=== PATIENT | female | born 1950 | race Caucasian/White ===

== ENCOUNTER 2017-05-22 08:00 | Outpatient (CLI) | payer OTHER | END 2017-05-22 08:01 | disposition home or self-care (01) | LOC: BICMAMMO 08:00 | PROVIDERS: ATTEND Internal Medicine | DX: M81.0 Age-related osteoporosis without current pathological fracture (principal) | CPT/HCPCS: 77080 ==

== ENCOUNTER 2019-08-08 10:18 | Outpatient (CLI) | payer MEDICARE, BC ==
[2019-08-08] MEDS ORDERED: Iopamidol-370 76% 500 ML 1 ML ONE (11:06)
--- NOTE | 2019-08-08 11:44 | CT ---
CT ABDOMEN WITH AND WITHOUT IV CONTRAST 08/08/2019 CLINICAL INFORMATION: Pancreatic pseudocyst. Left lower quadrant abdominal pain. Abnormal bowel habits. COMPARISON: None. Technique: Multiple contiguous axial CT images are obtained through the abdomen and pelvis with IV contrast. Cor onal reformatted images are provided. FINDINGS: Lower Chest: Bibasilar atelectasis. Vessels: Vascular calcifications in the abdominal aorta and iliac arteries Abdomen: Portal vein:Patent Gallbladder: Within normal limits for CT imaging. Liver: A subcentimeter too small to characterize hypodense lesion is seen in the right hepatic lobe a s well as lateral segment left hepatic lobe which are too small to characterize. Spleen: within normal limits. Pancreas: A 7 mm hypodense cystic appearing lesion is seen in the region of the pancreatic head. Panc reas otherwise demonstrates a normal appearance. No pancreatic or peripancreatic fluid collection is seen to suggest pseudocyst formation. Adrenals: within normal limits. Kidneys: There is an increased density 2.2 cm cystic lesion superior pole left kidney which does not demonstrate appreciable enhancement. Kidneys otherwise demonstrate a normal CT appearance bilaterally. Bowel: Small to moderate amount retained fecal material seen throughout the visualized colon. Loops o f small bowel are normal in caliber. Peritoneum: No ascites or free air; no fluid collection. Mesentery and Retroperitoneum: No enlarged mesenteric or retroperitoneal lymph nodes. Abdominal Wall: within normal limits. Bones: Degenerative changes are seen in the lumbar spine. There is mild left convex curvature of the lower lumbar spine. There is mild compression fracture involving the inferior endplate of the L3 vertebral body. The exact age is indeterminate, this is probably more remote in origin. IMPRESSION: 1. Subcentimeter too small to characterize hypodense lesion pancreatic head. Follow-up evaluation in one year is recommended. 2. 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 3. Subcentimeter too small to characterize hypodense lesions in each lobe of the liver. 4. Wedge-shaped compression fracture L3 vertebral body. Exact age is indeterminate, but this is proba prema more remote in origin.
== END 2019-08-08 10:19 | disposition home or self-care (01) ==
LOC: BICCT 10:18
PROVIDERS: ATTEND Internal Medicine Gastroenterology
DX: K86.2 Cyst of pancreas (principal); K21.9 Gastro-esophageal reflux disease without esophagitis; R10.32 Left lower quadrant pain; R19.4 Change in bowel habit; N28.1 Cyst of kidney, acquired; M48.56XA Collapsed vertebra, not elsewhere classified, lumbar region, initial encounter for fracture; K86.89 Other specified diseases of pancreas
CPT/HCPCS: 74170; 82565; Q9967

== ENCOUNTER 2021-07-19 09:54 | Outpatient (CLI) | payer MEDICARE, BC | END 2021-07-19 09:55 | disposition home or self-care (01) | LOC: SCSMRI 09:54 | PROVIDERS: ATTEND Family Medicine | DX: M25.511 Pain in right shoulder (principal); M50.10 Cervical disc disorder with radiculopathy, unspecified cervical region; M47.22 Other spondylosis with radiculopathy, cervical region | CPT/HCPCS: 72040; 72141 ==

== ENCOUNTER 2023-01-26 10:42 | Outpatient (CLI) | payer MEDICARE, BC ==
[2023-01-26] MEDS ORDERED: Iopamidol-370 76% 500 ML MDV (1 ML CHARGE) ONE (14:12)
== END 2023-01-26 10:43 | disposition home or self-care (01) ==
LOC: BICCT 10:42
PROVIDERS: ATTEND Physician Assistant Medical
DX: K86.2 Cyst of pancreas (principal)
CPT/HCPCS: 74170; 82565; Q9967